=== PATIENT | male | born 2000 | race Caucasian/White ===

== ENCOUNTER 2020-08-14 15:53 | Emergency (ER) | payer OTHER ==
[2020-08-14 16:21] VITALS: BP 108/59; PULSE 93; TEMP 98.2; BMI 22.5
== END 2020-08-14 17:02 | disposition home or self-care (01) ==
LOC: JERFT 15:53
PROC: 0H9AXZZ Drainage of Inguinal Skin, External Approach (ICD-10-PCS; principal; 2020-08-14)
DX: L02.214 Cutaneous abscess of groin (principal)
CPT/HCPCS: 87070; 87186; 87205; 99282-25

== ENCOUNTER 2020-10-14 09:44 | Emergency (ER) | payer OTHER ==
[2020-10-14 09:48] VITALS: BP 121/58; PULSE 89; TEMP 97.1; BMI 31.6
== END 2020-10-14 10:04 | disposition home or self-care (01) ==
LOC: JERFT 09:44 → JER 09:44 → JERFT 10:04
DX: L02.214 Cutaneous abscess of groin (principal)
CPT/HCPCS: 99283-25

== ENCOUNTER 2020-10-19 12:33 | Emergency (ER) | payer OTHER ==
[2020-10-19 12:37] VITALS: BP 118/63; PULSE 73; TEMP 97.5; BMI 22.9
== END 2020-10-19 13:16 | disposition home or self-care (01) ==
LOC: JERFT 12:33
PROC: 0H9AXZZ Drainage of Inguinal Skin, External Approach (ICD-10-PCS; principal; 2020-10-19)
DX: L02.214 Cutaneous abscess of groin (principal)
CPT/HCPCS: 87070; 87205; 99282-25

== ENCOUNTER 2020-11-12 17:23 | Emergency (ER) | payer OTHER ==
[2020-11-12 17:31] VITALS: BP 111/68; PULSE 79; TEMP 98.7; BMI 23.7
[2020-11-12] MEDS ORDERED: DEXAMETHASONE SOD PHOSPHATE 10 MG/1 ML VIAL IM ONE (17:46)
[2020-11-12] MEDS ORDERED: DEXAMETHASONE SOD PHOSPHATE 10 MG/1 ML VIAL ONE (17:51)
== END 2020-11-12 17:57 | disposition home or self-care (01) ==
LOC: JERFT 17:23
PROC: 3E023GC Introduction of Other Therapeutic Substance into Muscle, Percutaneous Approach (ICD-10-PCS; principal; 2020-11-12)
DX: L42 Pityriasis rosea (principal)
CPT/HCPCS: 99284-25; J1100

== ENCOUNTER 2020-11-20 17:55 | Emergency (ER) | payer OTHER ==
[2020-11-20 18:23] VITALS: BP 131/77; PULSE 81; TEMP 98.1; BMI 23.0
[2020-11-20] MEDS ORDERED: DEXAMETHASONE SOD PHOSPHATE 10 MG/1 ML VIAL IM ONE (18:38)
[2020-11-20] MEDS ORDERED: DEXAMETHASONE SOD PHOSPHATE 10 MG/1 ML VIAL ONE (18:39)
== END 2020-11-20 18:42 | disposition home or self-care (01) ==
LOC: JERFT 17:55
PROC: 3E023GC Introduction of Other Therapeutic Substance into Muscle, Percutaneous Approach (ICD-10-PCS; principal; 2020-11-20)
DX: R21 Rash and other nonspecific skin eruption (principal)
CPT/HCPCS: 99284-25; J1100

== ENCOUNTER 2022-12-18 15:10 | Emergency (ER) | payer OTHER ==
[2022-12-18 15:24] VITALS: BP 126/71; PULSE 91; RESP 18; TEMP 99.2; BMI 21.4
[2022-12-18] MEDS ORDERED: SULFAMETHOXAZOLE/TRIMETHOPRIM 800MG/160MG D.S. TABLET PO ONE (16:05)
[2022-12-18] MEDS ORDERED: IBUPROFEN 600 MG TABLET (FP) PO ONE ×2 (16:06→16:09)
[2022-12-18] MEDS ORDERED: SULFAMETHOXAZOLE/TRIMETHOPRIM 800MG/160MG D.S. TABLET ONE (16:09)
== END 2022-12-18 16:30 | disposition home or self-care (01) ==
LOC: JERFT 15:10
PROC: 0H98XZZ Drainage of Buttock Skin, External Approach (ICD-10-PCS; principal; 2022-12-18)
DX: L02.31 Cutaneous abscess of buttock (principal)
CPT/HCPCS: 99283-25

== ENCOUNTER 2024-06-23 18:08 | Emergency (ER) | payer OTHER ==
[2024-06-23 18:20] VITALS: BP 118/68; PULSE 72; RESP 20; TEMP 98.5; BMI 21.7
[2024-06-23] MEDS ORDERED: KETOROLAC TROMETHAMINE 30 MG/1 ML VIAL ONE (18:41)
[2024-06-23] MEDS ORDERED: AMOX TR/POT CLAV 875MG/125MG TABLETS (FP) ONE (18:41)
[2024-06-23] MEDS ORDERED: ACETAMINOPHEN 500 MG TABLET (FP) ONE (18:41)
[2024-06-23] MEDS: AMOX TR/POT CLAV 875MG/125MG TABLETS (FP) PO ONE (18:52)
[2024-06-23] MEDS: ACETAMINOPHEN 500 MG TABLET (FP) PO ONE (18:52)
[2024-06-23] MEDS: KETOROLAC TROMETHAMINE 30 MG/1 ML VIAL IM ONE (18:52)
== END 2024-06-23 18:52 | disposition home or self-care (01) ==
LOC: JERFT 18:08
PROC: 3E0133Z Introduction of Anti-inflammatory into Subcutaneous Tissue, Percutaneous Approach (ICD-10-PCS; principal; 2024-06-23)
DX: K08.89 Other specified disorders of teeth and supporting structures (principal)
CPT/HCPCS: 99283-25